=== PATIENT | male | born 1970 | race Caucasian/White ===

== ENCOUNTER 2023-02-26 20:30 | Emergency (ER) | payer OTHER, SELFPAY ==
[2023-02-26 20:30] VITALS: BP 128/95; PULSE 108; RESP 15; TEMP 36.4; O2SAT 98; BMI 39.2
--- NOTE | 2023-02-26 22:04 | CT_ITS ---
EXAM: CT ABDOMEN AND PELVIS WITHOUT INTRAVENOUS CONTRAST CLINICAL INDICATION: Pain L flank, ttp LUQ TECHNIQUE: Helically acquired images were obtained of the abdomen and pelvis without intravenous contrast. This CT exam was performed using one or more of the following dose reduction techniques: automated exposure control, adjustment of the mA and/or kV according to patient size, and/or use of iterative reconstruction technique. RADIATION DOSE: CTDIvol = 20.66 mGy, DLP = 1171.52 mGy-cm. COMPARISON: No relevant prior studies available. FINDINGS: LOWER THORAX: Unremarkable. Lung bases are clear. No cardiomegaly. No significant pericardial effusion. ABDOMEN: LIVER: Unremarkable. Homogeneous. GALLBLADDER AND BILE DUCTS: Unremarkable. No calcified gallstones. No gallbladder distention or wall edema. No intra- or extrahepatic biliary ductal dilation. PANCREAS: Unremarkable. No focal cystic mass. SPLEEN: Unremarkable. Normal size without focal cystic or solid mass. ADRENALS: Unremarkable. No nodules. KIDNEYS AND URETERS: Unremarkable. No hydronephrosis or ureter stones. Tiny nonobstructing intrarenal stone right lower pole kidney. Minimal mesenteric adenopathy. STOMACH AND BOWEL: Moderate fluid in the right colon, mild gas and stool in transverse colon, mild diverticulosis of sigmoid colon, mild stool in the rectosigmoid. Incomplete distention of segments of distal sigmoid and rectosigmoid, no obvious mass or adjacent adenopathy. High anterior location of the cecum in the midline supraumbilical region. No focal inflammatory change. PELVIS: APPENDIX: Small proximal appendix extending inferiorly and to the right from the cecum, slightly prominent 8 mm appendix tip of the level of the. Slightly prominent tip probably due to slight intraluminal fluid, no surrounding inflammation. The proximal appendix is 5 mm and within normal limits. BLADDER: Unremarkable. REPRODUCTIVE: Unremarkable as visualized. No mass. ABDOMEN and PELVIS: INTRAPERITONEAL SPACE: Unremarkable. No ascites or other fluid collection. No free air. BONES/JOINTS: Mild grade 1 L5 anterolisthesis with respect to S1, and bilateral L5 pars defects moderate L5-S1 disc space narrowing, mild vacuum disc, and tibial osteophytes and at least moderate neural foraminal stenosis. No suspicious lytic or blastic abnormality. No significant spinal canal stenosis. SOFT TISSUES: Mild fat-containing umbilical hernia. Small fat-containing inguinal hernias, greater on the right. No evidence of strangulation. VASCULATURE: Unremarkable. Abdominal aorta is non-dilated. LYMPH NODES: See above. CT/Abdomen/Pelvis without Cont IMPRESSION: 1. Right nephrolithiasis. Tiny nonobstructing intrarenal stone. No hydronephrosis or ureter stone. 2. Minimal mesenteric adenopathy. Mildly prominent fluid in small bowel and in right colon. 3. High and anterior position of the cecum. Unremarkable appendix in the right mid abdomen with the exception of slightly prominent fluid-filled tip. No convincing evidence of appendicitis. 4. Mild sigmoid diverticulosis, no evidence of acute diverticulitis. 5. L5 pars defects and grade 1 anterolisthesis with uncovertebral osteophytes and at least moderate neural foraminal stenosis. Small fat-containing umbilical hernia. Small fat-containing inguinal hernias. Electronically Signed: Negrita Dalal MD at 23:39 EDT ,
--- NOTE | 2023-02-26 22:05 | EDS_ITS ---
HPI HPI - GI History of Present Illness Chief Complaint: Abd Pain Informant: patient Abdominal Pain/Flank Pain Onset: Yesterday Context: Gradual Onset Timing: Continuous Quality: Aching Location: Left Flank Current Severity: Moderate Maximum Severity: Moderate Worsened by: Nothing Relieved by: Nothing Nausea/Vomiting/Emesis GI Symptom: Positive for Nausea and Vomiting Onset: Today Quality: Positive for Nonbilious; Negative for Blood streaks, Coffee ground or Hematemesis Diarrhea/Melena/Hematochezia GI Symptom: Positive for Diarrhea; Negative for Melena or Hematochezia Stool Quality: Positive for Loose; Negative for Mucous, Black, Maroon or BRB per rectum Severity: Mild Associated Symptoms Associated Symptoms: Negative for Dysuria, Frequency, Hematuria or Urgency Narrative Narrative: Pain in the left flank started gradually yesterday progressively worsening today not colicky associated with nausea and vomiting no fevers or chills or urinary s ymptoms/hematuria. Has had diverticulitis as well as kidney stones in the past, does not know which one this is or feels like. No prior abdominal surgeries. [facility] Medical History (Updated 02/27/23 @ 00:[address] Adrian Hernandez MD) Anxiety Diverticulosis Hypertension Home Medications hydrochlorothiazide 25 mg tablet 25 mg PO DAILY 03/27/21 [History Last Taken Unknown] lisinopril 20 mg tablet 20 mg PO DAILY 03/27/21 [History Last Taken Unknown] sertraline 50 mg tablet (Zoloft) 50 mg PO DAILY 03/27/21 [History Last Taken Unknown] amoxicillin 875 mg-potassium clavulanate 125 mg tablet 875 mg (0.875 x 875-125 mg) PO Q12H #14 TABLETS 02/27/23 [Rx Last Taken Unknown] Allergy/AdvReac Type Severity Reaction Status Date / Time No Known Allergies Allergy Verified 02/26/23 20:34 Social History Smoking Status: Never smoker alcohol intake: current details: social substance use type: does not use seatbelt use: always do you feel safe at home: Yes ROS ROS ED Constitutional Constitutional ED: Denies chills or fever(s) Eyes Eyes: Denies change in vision or diplopia ENT ENT ED: Denies rhinorrhea or sore throat Cardiovascular Cardiovascular: Denies chest pain or palpitations Respiratory/Chest Respiratory/Chest: Denies cough or dyspnea Gastrointestinal Gastrointestinal: Reports abdominal pain, diarrhea, nausea and vomiting; Denies melena Genitourinary Genitourinary ED: Denies dysuria or hematuria Musculoskeletal Musculoskeletal: Reports back pain and other Details: Pain occasionally radiates into the left low back ; Denies neck pain Integumentary Denies abscess or rash Neurologic Neurologic: Denies headache(s), paresthesias or weakness Psychiatric Psychiatric: Denies anxiety or suicidal thoughts EXAM Physical Exam Const Vital Signs: 02/26/23 20:30 02/26/23 22:54 Temperature 97.6 F L Temperature Source Temporal Oral Pulse Rate 108 H Respiratory Rate 15 Blood Pressure 128/95 H Blood Pressure Mean 106 Pulse Ox 98 Oxygen Delivery Method Room Air Positive well nourished and well developed General Appearance ED: well developed and NAD HEENT Reports moist mucous membranes normocephalic and atraumatic Eyes PERRL and EOMs intact bilaterally Neck full ROM and supple Resp normal respiratory effort and clear to auscultation bilaterally Cardio regular rate, regular rhythm and no murmurs GI non-tender and non-distended Auscultation: normoactive bowel sounds Palpation: soft Back/Spine no CVA tenderness General Back: other FROM Extremity normal to inspection General Extremety ED: Negative for edema, pulses abnormal or tenderness General Extremity: Negative for edema or pulses abnormal Neuro oriented x3, CN's II-XII intact bilaterally and no sensory deficits noted Sensorium / Orientation: awake and alert Motor Exam: strength 5/5 throughout Skin no rashes or lesions noted and no wounds MDM MDM MDM Narrative Medical decision making narrative: Differential includes kidney stone, upper urinary tract infection, diverticulitis, other intra-abdominal/intestinal abnormalities. Patient has a mild leukocytosis and a CT that shows mesenteric adenitis but basically nothing else except for diverticulosis, nothing else acute. I reviewed the images and the report which I agree with. A urine shows no sign of infection, so given his history I think it be reasonable to put him on a short course of Augmentin to treat potential early diverticulitis empirically, I would not necessarily consider this if he did not have a leukocytosis with a trend toward leftward shift. He is well, his vitals are normal except for mild tachycardia, and certainly viral infection is in the differential diagnosis. If he gets worse on the antibiotic, discontinue it and follow-up with his doctor. He is comfortable with that plan. Lab Data Attestation: I reviewed the patient's lab results. Labs: Laboratory Results - last 24 hr 02/26/23 02/27/23 22:13 00:18 WBC 12.4 H RBC 5.76 Hgb 17.3 H Hct 51.7 MCV 89.8 MCH 30.0 MCHC 33.5 RDW Std Deviation 42.8 RDW Coeff of Massimo 13.1 Plt Count 248 MPV 10.4 Immature Gran % (Auto) 0.500 Neut % (Auto) 81.7 H Lymph % (Auto) 10.5 L [place] % (Auto) 5.4 Eos % (Auto) 1.7 Baso % (Auto) 0.2 Absolute Neuts (auto) 10.1 H Absolute Lymphs (auto) 1.30 Nucleated RBC % 0 Sodium 138 Potassium 3.7 Chloride 108 H Carbon Dioxide 24.0 Anion Gap 6 BUN 19 H Creatinine 1.21 Estim Creat Clear Calc 75.41 Est GFR (MDRD) Af Amer 82 Est GFR (MDRD) Non-Af 67 BUN/Creatinine Ratio 15.7 Glucose 121 H Calcium 9.2 Urine Color Yellow Urine Clarity Clear Urine pH 5.0 Ur Specific [place] 1.020 Urine Protein 15 H Urine Glucose (UA) Normal Urine Ketones 50 H Urine Occult Blood Negative Urine Nitrite Negative Urine Bilirubin 1 H Urine Urobilinogen Normal Ur Leukocyte Esterase Negative Urine RBC 0 SEEN Urine WBC 0 SEEN Ur Squamous Epith Cells 0 SEEN Urine Bacteria 1+ Urine Mucus 0 SEEN Radiography Diagnostic Testing: Clinical Impression(s) from Imaging Studies Abdomen/Pelvis CT 02/26/23 22:04 IMPRESSION: 1. Right nephrolithiasis. Tiny nonobstructing intrarenal stone. No hydronephrosis or ureter stone. 2. Minimal mesenteric adenopathy. Mildly prominent fluid in small bowel and in right colon. 3. High and anterior position of the cecum. Unremarkable appendix in the right mid abdomen with the exception of slightly prominent fluid-filled tip. No convincing evidence of appendicitis. 4. Mild sigmoid diverticulosis, no evidence of acute diverticulitis. 5. L5 pars defects and grade 1 anterolisthesis with uncovertebral osteophytes and at least moderate neural foraminal stenosis. Small fat-containing umbilical hernia. Small fat-containing inguinal hernias. Electronically Signed: Negrita Dalal MD at 23:39 EDT , Discharge Plan Triage Chief Complaint: Abd Pain ED Provider: Adrian Hernandez Dx/Rx/DC Orders Clinical Impression: Diverticulosis, Left sided abdominal pain, Right nephrolithiasis Prescriptions: New amoxicillin-pot clavulanate [amoxicillin-pot clavulanate] 875-125 mg tablet 875 mg PO Q12H Qty: 14 0RF No Action sertraline [Zoloft] 50 mg tablet 50 mg PO DAILY hydrochlorothiazide 25 mg tablet 25 mg PO DAILY lisinopril 20 mg tablet 20 mg PO DAILY Primary Care Provider: Krishna Black Referrals: Krishna Black MD [Primary Care Provider] - 3-5 Days if not improving Activity Restrictions/Additional Instructions: If after 2 days of antibiotics your pain is not getting better and your diarrhea is getting worse, discontinue the antibiotics need to return to the ER follow-up with your doctor. Disposition Disposition: Home, Self Care
[2023-02-26] MEDS: Morphine 4 MG/ML Syringe IV (22:23)
[2023-02-26] MEDS: 0.9% Normal Saline 1,000 ML 1000 ML IV (22:23)
[2023-02-26] MEDS: Ondansetron 4 MG/2 ML Vial IV (22:23)
[2023-02-26 22:28] LABS: Absolute Neutrophil Count 10.1 X10^3/uL (2.0-7.7); Basophil# 0.02 X10^3/uL; Basophil% 0.2 % (0-1); Eosinophil# 0.21 X10^3/uL; Eosinophils% 1.7 % (0-5); Hematocrit 51.7 % (40-54); Hemoglobin 17.3 g/dL (13.0-16.5); Lymphocyte % 10.5 % (19-41); Mean Corp Hgb Conc 33.5 g/dL (32-36); Mean Corpuscular Volume 89.8 fL (80-94); Mean Platelet Vol. 10.4 fl (6.2-12.0); Monocyte# 0.67 X10^3/uL; Monocyte% 5.4 % (0-10); NRBC Flagged by Analyzer 0 % (0-5); Neutrophil # 10.12 X10^3/uL (2.7-7.7); Neutrophil % 81.7 % (47-70); Platelet Count 248 K/mm3 (150-450); RBC Distribution Width CV 13.1 % (11.6-14.6); RBC Distribution Width SD 42.8 fl (35.1-43.9); Red Blood Count 5.76 M/mm3 (4.6-6.2); White Blood Count 12.4 K/mm3 (4.4-11.0)
[2023-02-26 22:39] LABS: Anion Gap 6 (5-15); BUN 19 mg/dL (7-18); BUN/Creat Ratio 15.7 RATIO (10-20); Calcium,Total 9.2 mg/dL (8.5-10.1); Chloride 108 mmol/L (98-107); Creatinine, Serum 1.21 mg/dL (0.70-1.30); EST Glomerular Filtration Rate 67 mL/min (>60); Est Glom Filt Rate - Afr Amer 82 mL/min (>60); Estimated Creatinine Clearance 75.41 ml/min; Glucose 121 mg/dL (74-106); Potassium 3.7 mmol/L (3.5-5.1); Sodium Level 138 mmol/L (136-145)
[2023-02-27 00:25] LABS: Mucous, Urine 0 SEEN /hpf (<or=2+); Red Blood Cells-Urine 0 SEEN /hpf (0-5); Squamous Epithelial Cells - UA 0 SEEN /hpf (0-5); White Blood Cells 0 SEEN /hpf (0-5)
[2023-02-27 00:26] LABS: Color, Urine Yellow (Yellow); Glucose, Dipstick Normal (Normal); Ketone-Dipstick 50 mg/dl (Negative); Leukocyte Esterase-Dipstick Negative /ul (Negative); Nitrite-Dipstick Negative (Negative); Occult Blood-Urine Negative /ul (Negative); Protein-Dipstick 15 mg/dl (Negative); Urine Bilirubin Dipstick 1 mg/dL (Negative); Urine Clarity Clear (Clear); Urine Urobilinogen Normal (Normal)
[2023-02-27 00:31] VITALS: BP 129/92; PULSE 90; RESP 15; O2SAT 96
[2023-02-27 00:31] LABS: Bacteria 1+ /hpf (None Seen)
[2023-02-27] MEDS: Amox/Clavulanate 875 MG Tablet PO (00:54)
== END 2023-02-27 01:30 | disposition home or self-care (01) ==
PROVIDERS: Emergency Provider Emergency Medicine; PCP Family Medicine; Visit Provider Emergency Medicine
DX: K57.30 Diverticulosis of large intestine without perforation or abscess without bleeding (principal); I10 Essential (primary) hypertension; F41.9 Anxiety disorder, unspecified; Z79.899 Other long term (current) drug therapy; R10.9 Unspecified abdominal pain; N20.0 Calculus of kidney
CPT/HCPCS: 74176; 80048; 81001; 85025; 96361; 96374; 99283; J7030; J2405

== ENCOUNTER 2023-11-21 15:41 | Emergency (ER) | payer OTHER, SELFPAY ==
[2023-11-21 15:43] VITALS: BP 125/111; PULSE 105; RESP 16; TEMP 36.2; O2SAT 98; BMI 40.4
[2023-11-21] MEDS: 0.9% Normal Saline (1000mL) 1,000 ML 1000 ML IV (16:00)
[2023-11-21] MEDS: Ondansetron 4 MG/2 ML Vial IV (16:01)
[2023-11-21] MEDS: Ketorolac 15 MG/ML Vial IV (16:02)
[2023-11-21] MEDS: Morphine 4 MG/ML Syringe IV ×2 (16:03→17:37)
--- NOTE | 2023-11-21 16:04 | CT_ITS ---
STUDY: CT ABDOMEN AND PELVIS WITH CONTRAST REASON FOR EXAM: Male, 53 years old. Abdominal pain RADIATION DOSAGE (If Supplied By Facility): CTDIvol = ( 17.07 ) mGy, DLP = ( 1368.70 ) mGycm TECHNIQUE: Transaxial images were obtained from the dome of the diaphragm to the symphysis pubis without oral contrast. IV 100mL Isovue-370 was administered. Sagittal and coronal images were reconstructed. Individualized dose optimization techniques were used for this CT. COMPARISON: None. FINDINGS: The visualized lung bases are unremarkable. The visualized portions of the heart are within normal limits. Normal liver. Normal gallbladder and extrahepatic biliary system. Normal spleen. Normal pancreas. Normal bilateral adrenal glands. Normal right kidney. Normal left kidney. Normal visualized stomach. Normal small intestine. Wall thickening of the sigmoid colon with surrounding inflammation suggestive for diverticulitis. The appendix is visualized and appears normal. Normal abdominal aorta. Normal inferior vena cava. Normal retroperitoneum. Normal urinary bladder. Normal abdominal wall. Mild degenerative vertebral changes. Spondylolysis of L5 with minimal spondylolisthesis at L5-S1. CT/Abdomen/Pelvis W IV Cont ONLY IMPRESSION: Sigmoid diverticulitis. Electronically Signed: Bruno Rebolledo DO at 17:24 EDT ,
--- NOTE | 2023-11-21 16:04 | EDS_ITS ---
<Statement entered by Leslee He MD - 11/21/23 17:56> I have personally performed a face to face assessment of the patient and have reviewed the UMA Note. Patient presents secondary to abdominal pain. He developed lower abdominal pain 2 days ago has been persistent. He has a history of diverticulosis and reports having intermittent pain like this previously. This seems to be the worst episode he had. He has had subjective fevers at home. No vomiting. He states his last bowel movement was today and he does note more pain with defecation. Patient lying in bed no acute distress. Head neck examination unremarkable. Heart is regular rate and rhythm. Lung sounds are clear. Abdomen is soft with moderate tenderness of the lower abdomen. Active bowel sounds are noted. Patient received analgesics. CBC was normal white count 10.1 with 79% neutrophils. CMP is unremarkable along with lipase. Urinalysis reveals no evidence of hematuria. CT scan of the abdomen pelvis reveals diverticulitis of the sigmoid colon. Patient will be treated with Cipro and Flagyl which she has done well with previously. He is given Percocet for pain. Return instructions were provided. HPI History of Present Illness Chief Complaint: Abd Pain Narrative Narrative: Patient is a 53-year-old male with history of hypertension who presents to the emergency department for 2 to 3 days of lower abdominal pain. Patient states today was the worst he states that when the pain is sharp, it stops him doing what he is doing. He states he is able to have bowel movements however this does cause discomfort. Denies any blood in his bowel movements. Patient denies any nausea or vomiting. Patient dates the pain is worse with palpation and movement. He denies any surgeries to his abdomen. He does state to have subjective fever and chills at home. [facility] Medical History (Updated 11/21/23 @ 17:47 by LATA White) Anxiety Diverticulosis Hypertension Home Medications hydrochlorothiazide 25 mg tablet 25 mg PO DAILY 03/27/21 [History Last Taken Unknown] lisinopril 20 mg tablet 20 mg PO DAILY 03/27/21 [History Last Taken Unknown] sertraline 50 mg tablet (Zoloft) 50 mg PO DAILY 03/27/21 [History Last Taken Unknown] amoxicillin 875 mg-potassium clavulanate 125 mg tablet 875 mg (0.875 x 875-125 mg) PO Q12H #14 TABLETS 02/27/23 [Rx Last Taken Unknown] ondansetron 4 mg disintegrating tablet 8 mg (2 x 4 mg) PO Q8H PRN PRN Nausea #20 tabs 02/27/23 [Rx Last Taken Unknown] ciprofloxacin HCl 500 mg tablet (Cipro) 500 mg PO BID #20 tabs 11/21/23 [Rx Last Taken Unknown] metronidazole 500 mg tablet 500 mg PO TID 10 days #30 tabs 11/21/23 [Rx Last Taken Unknown] ondansetron 4 mg disintegrating tablet 4 mg PO Q8H PRN PRN Nausea #10 tabs 11/21/23 [Rx Last Taken Unknown] oxycodone-acetaminophen 5 mg-325 mg tablet (Percocet) 1 tab PO Q8H PRN pain 3 days #10 tabs 11/21/23 [Rx Last Taken Unknown] Allergy/AdvReac Type Severity Reaction Status Date / Time No Known Allergies Allergy Verified 11/21/23 15:44 Social History Smoking Status: Former smoker alcohol intake: current details: social substance use type: does not use seatbelt use: always do you feel safe at home: Yes ROS ROS ED ROS Narrative Constitutional: Negative for fever, chills, weight loss, weakness Eyes: Negative for vision loss, vision change, double vision ENT: Negative for any sore throat, ear pain, congestion Cardiovascular: Negative for any chest pain, tightness, palpitations Respiratory: Negative for any cough, sputum production, hemoptysis, dyspnea, dyspnea on exertion, orthopnea Gastrointestinal: Negative for any nausea, vomiting, diarrhea, constipation, blood in stool, blood in vomit. Positive for abdominal pain, painful bowel movements : Negative for any urinary frequency, dysuria, retention, blood in urine Muscle skeletal: Negative for any neck pain, back pain Neurological: Negative for any headache, syncope, dizziness Skin: Negative for any rashes, itching, abrasions, lacerations Psychiatric: Negative for any depression, anxiety, stress, suicidal ideation, homicidal ideation Hematologic: Negative for any excessive bruising, easy bleeding EXAM Physical Exam Narrative Exam Narrative: Vital signs reviewed. HEET: Head normocephalic atraumatic, TMs clear bilaterally. Posterior pharynx is clear, moist mucous membranes. Nares clear bilaterally. Neck: Supple with no lymphadenopathy or tenderness. No signs of meningismus. Cardiac: Regular rate and rhythm no murmurs gallops or rubs, equal peripheral pulses bilaterally. Respiratory: Lungs clear to auscultation bilaterally. No chest tenderness. Abdomen: Soft, nondistended. No abdominal bruit or pulsatile masses. No hepatosplenomegaly. Positive for tenderness to the lower abdomen, pain on palpation of the right lower left lower and suprapubic area. No peritoneal signs. Extremities: No peripheral edema, no signs of gross trauma or deformity. Active full range of motion of all extremities. Neuro: Cranial nerves II through XII intact, no focal neurological deficits. Skin: Clean dry and intact with no rash, purpura, petechiae, vesicles or pustules. Backs/flank: No CVA tenderness, no midline spinal tenderness, no deformity. Psych: Normal mood and affect. No SI, HI or acute psychosis. Const Vital Signs: 11/21/23 15:43 11/21/23 17:26 Temperature 97.1 F L 99.4 F H Temperature Source Temporal Oral Pulse Rate 105 H 85 Respiratory Rate 16 18 Blood Pressure 125/111 H 131/90 H Blood Pressure Mean 115 103 Pulse Ox 98 96 Oxygen Delivery Method Room Air Room Air Positive well nourished and well developed General Appearance ED: well developed MDM MDM Lab Data Labs: Laboratory Results - last 24 hr 11/21/23 11/21/23 16:00 17:10 WBC 10.1 RBC 4.91 Hgb 14.8 Hct 44.4 MCV 90.4 MCH 30.1 MCHC 33.3 RDW Std Deviation 45.1 H RDW Coeff of Massimo 13.6 Plt Count 195 MPV 10.1 Immature Gran % (Auto) 0.300 Neut % (Auto) 79.7 H Lymph % (Auto) 13.1 L [place] % (Auto) 6.3 Eos % (Auto) 0.4 Baso % (Auto) 0.2 Absolute Neuts (auto) 8.1 H Absolute Lymphs (auto) 1.32 Nucleated RBC % 0 Sodium 137 Potassium 3.6 Chloride 106 Carbon Dioxide 26.0 Anion Gap 5 BUN 15 Creatinine 1.11 Estim Creat Clear Calc 105.63 Est GFR (MDRD) Af Amer 90 Est GFR (MDRD) Non-Af 74 BUN/Creatinine Ratio 13.5 Glucose 121 H Calcium 9.0 Total Bilirubin 1.30 H AST 17 ALT 44 Alkaline Phosphatase 80 Total Protein 7.3 Albumin 3.6 Globulin 3.7 Albumin/Globulin Ratio 1.0 Lipase 33 Urine Color Yellow Urine Clarity Clear Urine pH 6.5 Ur Specific [place] 1.010 Urine Protein 15 H Urine Glucose (UA) Normal Urine Ketones Negative Urine Occult Blood 10 H Urine Nitrite Negative Urine Bilirubin Negative Urine Urobilinogen 1 H Ur Leukocyte Esterase Negative Radiography Diagnostic Testing: Clinical Impression(s) from Imaging Studies Abdomen/Pelvis CT 11/21/23 16:04 IMPRESSION: Sigmoid diverticulitis. Electronically Signed: Bruno Rebolledo DO at 17:24 EDT Reading Location ID and State: [facility] / [place] Tel [phone], Service support , Treatment and Re-Evaluation :: Differential diagnosis includes however is not limited to: Diverticulitis, colitis, bowel obstruction, pneumoperitoneum, obstructing uropathy, diverticulitis Patient is in no obvious respiratory distress, patient does look slightly uncomfortable secondary to pain to the lower abdomen. Patient did have a low- grade temp at 99.9. Patient be given an abdominal workup including CBC, CMP, lipase. Patient will receive IV fluids, Zofran and morphine as well as Toradol. Patient will receive a CT scan of the abdomen pelvis with IV contrast. Patient will be reevaluated. All radiologic examinations were read, reviewed by the emergency department attending. From these reads, a plan of care will be put in place. Patient's laboratory values showed a normal CBC, patient's chemistries were unremarkable, bilirubin slightly elevated at 1.30 I believe this is nonspecific. Patient's urinalysis was negative for any infection. Patient CT scan of the abdomen pelvis showed sigmoid diverticulitis, this is consistent with the patient's pain. Patient be given Cipro, Flagyl. He will also be given pain medicine nausea medicine for home. I did have to redosed the patient with IV morphine, on my reevaluation, before discharge, the patient was feeling comfortable. He was given red flag signs to return such as worsening belly pain, fever chills nausea or vomiting, not improving the next 3 to 4 days. He verbally understands and will return for any worsening symptoms. Patient stable for discharge. Discharge Plan Triage Chief Complaint: Abd Pain ED Midlevel Provider: Julius Fields ED Provider: Leslee He Dx/Rx/DC Orders Clinical Impression: Acute diverticulitis, Abdominal pain Instructions: Diverticulitis Dc, ED Diverticulitis Prescriptions: New ciprofloxacin HCl [Cipro] 500 mg tablet 500 mg PO BID Qty: 20 0RF metronidazole 500 mg tablet 500 mg PO TID 10 Days Qty: 30 0RF oxycodone-acetaminophen [Percocet] 5-325 mg tablet 1 tab PO Q8H PRN (Reason: pain) 3 Days Qty: 10 0RF ondansetron 4 mg tablet,disintegrating 4 mg PO Q8H PRN PRN (Reason: Nausea) Qty: 10 0RF No Action sertraline [Zoloft] 50 mg tablet 50 mg PO DAILY hydrochlorothiazide 25 mg tablet 25 mg PO DAILY lisinopril 20 mg tablet 20 mg PO DAILY amoxicillin-pot clavulanate [amoxicillin-pot clavulanate] 875-125 mg tablet 875 mg PO Q12H Qty: 14 0RF ondansetron [ondansetron] 4 mg tablet,disintegrating 8 mg PO Q8H PRN PRN (Reason: Nausea) Qty: 20 0RF Primary Care Provider: Krishna Black Referrals: Krishna Black MD [Primary Care Provider] - Activity Restrictions/Additional Instructions: You must take the antibiotics until finished. Do not drink alcohol needs antibiotics. Please return for worsening abdominal pain, fever or chills. Disposition Disposition: Home, Self Care
[2023-11-21 16:22] LABS: Absolute Lymphocyte Count 1.32 X10^3/uL (0.83-4.51); Absolute Neutrophil Count 8.1 X10^3/uL (2.0-7.7); Basophil# 0.02 X10^3/uL; Basophil% 0.2 % (0-1); Eosinophil# 0.04 X10^3/uL; Eosinophils% 0.4 % (0-5); Hematocrit 44.4 % (40-54); Hemoglobin 14.8 g/dL (13.0-16.5); Lymphocyte # 1.32 X10^3/ul (0.83-4.51); Lymphocyte % 13.1 % (19-41); Mean Corp Hgb Conc 33.3 g/dL (32-36); Mean Corpuscular Hgb 30.1 pg (27.0-32.0); Mean Corpuscular Volume 90.4 fL (80-94); Mean Platelet Vol. 10.1 fl (6.2-12.0); Monocyte# 0.64 X10^3/uL; Monocyte% 6.3 % (0-10); NRBC Flagged by Analyzer 0 % (0-5); Neutrophil # 8.06 X10^3/uL (2.7-7.7); Neutrophil % 79.7 % (47-70); Platelet Count 195 K/mm3 (150-450); RBC Distribution Width CV 13.6 % (11.6-14.6); RBC Distribution Width SD 45.1 fl (35.1-43.9); Red Blood Count 4.91 M/mm3 (4.6-6.2); White Blood Count 10.1 K/mm3 (4.4-11.0)
[2023-11-21 16:26] LABS: AST(SGOT) 17 U/L (15-37); Alanine Aminotransfer ALT/SGPT 44 U/L (16-61); Albumin, Serum 3.6 g/dL (3.2-5.0); Alkaline Phosphatase 80 U/L (45-117); Anion Gap 5 (5-15); BUN 15 mg/dL (7-18); BUN/Creat Ratio 13.5 RATIO (10-20); Chloride 106 mmol/L (98-107); Creatinine, Serum 1.11 mg/dL (0.70-1.30); EST Glomerular Filtration Rate 74 mL/min (>60); Est Glom Filt Rate - Afr Amer 90 mL/min (>60); Estimated Creatinine Clearance 105.63 ml/min; Globulin 3.7 g/dL (2.2-4.2); Glucose 121 mg/dL (74-106); Lipase 33 U/L (13-75); Potassium 3.6 mmol/L (3.5-5.1); Protein, Total 7.3 g/dL (6.4-8.2); Sodium Level 137 mmol/L (136-145)
[2023-11-21 17:16] LABS: Bacteria 0 SEEN /hpf (None Seen); Mucous, Urine 0 SEEN /hpf (<or=2+); Red Blood Cells-Urine 0 SEEN /hpf (0-5); Squamous Epithelial Cells - UA 0 SEEN /hpf (0-5); White Blood Cells 0 SEEN /hpf (0-5)
[2023-11-21 17:20] LABS: Color, Urine Yellow (Yellow); Glucose, Dipstick Normal (Normal); Ketone-Dipstick Negative (Negative); Leukocyte Esterase-Dipstick Negative /ul (Negative); Nitrite-Dipstick Negative (Negative); Occult Blood-Urine 10 /ul (Negative); Protein-Dipstick 15 mg/dl (Negative); Urine Bilirubin Dipstick Negative (Negative); Urine Clarity Clear (Clear); Urine Urobilinogen 1 mg/dl (Normal); Urine pH 6.5 (5.0 - 8.0)
[2023-11-21 17:26] VITALS: BP 131/90; PULSE 85; RESP 18; TEMP 37.4; O2SAT 96
[2023-11-21] MEDS: Ciprofloxacin 500 MG Tablet PO (17:51)
[2023-11-21] MEDS: metroNIDAZOLE 500 MG Tablet PO (17:51)
[2023-11-21 17:59] VITALS: BP 134/89; PULSE 88; RESP 18; TEMP 37.3; O2SAT 99
== END 2023-11-21 18:01 | disposition home or self-care (01) ==
PROVIDERS: Nurse Practitioner; Emergency Provider Emergency Medicine; PCP Family Medicine; Visit Provider Emergency Medicine
DX: K57.32 Diverticulitis of large intestine without perforation or abscess without bleeding (principal); I10 Essential (primary) hypertension; Z87.891 Personal history of nicotine dependence; R10.30 Lower abdominal pain, unspecified; F41.9 Anxiety disorder, unspecified; Z79.899 Other long term (current) drug therapy
CPT/HCPCS: 74177; 80053; 81001; 83690; 85025; 96361; 96374; 96375; 96376; 99283; J7030; Q9967; A4216; J2405